=== PATIENT | male | born 1930 | race Caucasian/White ===

== ENCOUNTER 2016-12-04 08:44 | Inpatient (IN) | payer MEDICARE ==
[~2016-12-04] VITALS: Ht 170.2 cm; Wt 56.2 kg
[~2016-12-04 08:44] MED LIST: ALLOPURINOL; BENA40TA3 PO; COLC0.6T66 PO; FUROSEMIDE; NIFE60TA7 PO; SIMV40TA5 PO; SUCRALFATE
[2016-12-04] MEDS ORDERED: SODIUM CHLORIDE 0.9% 1,000 ML IV ONE ×2 (09:21→10:30)
[2016-12-04 09:29] LABS: BASOPHILS % 0.1 % (0.0-2.0); HEMATOCRIT. 35.2 % (42.0-52.0); HEMOGLOBIN. 11.8 g/dL (14.0-18.0); LYMPHOCYTES % 7.2 % (20.0-50.0); MEAN CORPUSCULAR VOLUME 83.6 fL (80.0-94.0); MEAN PLATELET VOLUME 8.9 fl (7.4-10.4); MONOCYTES % 4.6 % (2.0-8.0); NEUTROPHILS % 88.1 % (40.0-76.0); PLATELET 390 x1000/uL (130-400); RED BLOOD CELL COUNT 4.21 mill/uL (4.7-6.1); RED CELL DISTRIBUTION WIDTH 17.7 % (11.6-14.6)
[2016-12-04 09:37] LABS: INR 1.1; PROTHROMBIN TIME 11.3 sec
[2016-12-04] MEDS ORDERED: ALLO100T PO (10:03)
[2016-12-04] MEDS ORDERED: FURO40TA5 PO ×2 (10:04→16:14)
[2016-12-04 10:05] LABS: TROPONIN I 0.69 ng/mL (0.00-0.04)
[2016-12-04] MEDS ORDERED: ATOR20TA65 PO (10:08)
[2016-12-04] MEDS ORDERED: METO-300 PO (10:09)
[2016-12-04] MEDS ORDERED: METOLAZONE (10:12)
[2016-12-04] MEDS ORDERED: ASPIRIN 81MG TABLET PO ONE (10:15)
[2016-12-04] MEDS ORDERED: KCL 10MEQ/50ML PREMIX 50 ML IV ONE (10:15)
[2016-12-04] MEDS ORDERED: ELIQUIS PO (10:16)
[2016-12-04] MEDS ORDERED: OMEP40CA34 PO (10:16)
[2016-12-04] MEDS ORDERED: HYDRALAZINE HCL 100MG TABLET PO NR (12:45)
[2016-12-04 13:00] VITALS: BP 206/105
[2016-12-04] MEDS ORDERED: ONDANSETRON HCL 4MG/2ML VIAL IV PRN (13:30)
[2016-12-04] MEDS ORDERED: ACETAMINOPHEN 325MG TABLET PO PRN (13:30)
[2016-12-04] MEDS ORDERED: HYDROCODONE/ACETAMINOPHEN 5/325MG TABLET PO PRN (13:30)
[2016-12-04] MEDS ORDERED: CLONIDINE 0.1MG TABLET PO PRN (13:30)
[2016-12-04] MEDS ORDERED: DOCUSATE SODIUM 100MG CAPSULE PO PRN (13:30)
[2016-12-04] MEDS ORDERED: HYDRALAZINE HCL 100MG TABLET PO SCH (14:00)
[2016-12-04] MEDS ORDERED: METOPROLOL TARTRATE 25MG TABLET PO SCH (14:00)
[2016-12-04] MEDS: MEGESTROL ACETATE 400 MG/10 ML UDC PO SCH (14:36)
[2016-12-04] MEDS: ENOXAPARIN 30MG/0.3ML SYR SUBCUT SCH (14:36)
[2016-12-04] MEDS: POTASSIUM CHLORIDE 20MEQ TABLET SR PO SCH (14:36)
[2016-12-04] MEDS: AMLODIPINE 10MG TABLET PO SCH (14:37)
[2016-12-04] MEDS: MULTIVITAMINS,THER W-MINERALS TABLET PO SCH (14:37)
[2016-12-04 14:39] VITALS: BP 135/105
[2016-12-04] MEDS ORDERED: KCL 20MEQ/100ML PREMIX 100 ML IV NR (15:30)
[2016-12-04 16:12] VITALS: BP 114/55
[2016-12-04] MEDS ORDERED: METO2.5T14 PO (16:14)
[2016-12-04 17:05] LABS: CREATINE KINASE MB FRACTION 2.8 ng/mL (0.5-3.6)
[2016-12-04 17:15] LABS: TROPONIN I 0.75 ng/mL (0.00-0.04)
[2016-12-04] MEDS: DEXT 5%/0.45% NACL KCL 10MEQ/L 1,000 ML IV SCH (17:34)
[2016-12-04 20:00] VITALS: BP 146/82
[2016-12-04] MEDS: METOPROLOL TARTRATE 50MG TABLET PO SCH (20:43)
[2016-12-04] MEDS: HYDRALAZINE HCL 100MG TABLET PO SCH (21:02)
[2016-12-05] VITALS (7 sets, daily range): BP systolic 108–152; BP diastolic 62–83
[2016-12-05 01:20] LABS: CREATINE KINASE MB FRACTION 1.9 ng/mL (0.5-3.6)
[2016-12-05 01:45] LABS: TROPONIN I 0.73 ng/mL (0.00-0.04)
[2016-12-05] MEDS: HYDRALAZINE HCL 100MG TABLET PO SCH ×3 (05:25→22:47)
[2016-12-05 06:07] LABS: MEAN CORPUSCULAR HEMOGLOBIN 28.1 pg (28.0-32.0); MEAN PLATELET VOLUME 8.9 fl (7.4-10.4); PLATELET 310 x1000/uL (130-400); RED BLOOD CELL COUNT 3.57 mill/uL (4.7-6.1); RED CELL DISTRIBUTION WIDTH 17.6 % (11.6-14.6)
[2016-12-05 06:44] LABS: CHLORIDE 80 mEq/L (98-107)
[2016-12-05 07:24] LABS: CARBON DIOXIDE 34 mEq/L (21-32); HDL CHOLESTEROL 64 mg/dL (40-59); LDL CHOLESTEROL 101 mg/dL (5-100)
[2016-12-05] MEDS: AMLODIPINE 10MG TABLET PO SCH (08:22)
[2016-12-05] MEDS: POTASSIUM CHLORIDE 20MEQ TABLET SR PO SCH (08:22)
[2016-12-05] MEDS: MULTIVITAMINS,THER W-MINERALS TABLET PO SCH (08:23)
[2016-12-05] MEDS: MEGESTROL ACETATE 400 MG/10 ML UDC PO SCH (08:23)
[2016-12-05] MEDS: METOPROLOL TARTRATE 50MG TABLET PO SCH ×2 (08:23→21:06)
[2016-12-05 10:48] LABS: PLATELET ESTIMATE NORMAL
[2016-12-05] MEDS: KCL 20MEQ/100ML PREMIX 100 ML IV SCH ×2 (11:09→20:51)
[2016-12-05] MEDS: ENOXAPARIN 30MG/0.3ML SYR SUBCUT SCH (14:57)
[2016-12-05 18:18] LABS: BG BASE EXCESS 11.7 mmol/L (-2.0-2.0); BG CARBOXYHEMOGLOBIN 0.3 % (0.5-1.5); BG DEOXYHEMOGLOBIN 2.8 % (0.0-5.0); BG FRACTION INSPIRED OXYGEN 100; BG HCO3 ACT 34.8 mmol/L (22.0-26.0); BG METHEMOGLOBIN 0.2 % (0.0-1.5); BG OXYGEN SATURATION 97.2 % (92.0-98.5); BG OXYHEMOGLOBIN 96.7 % (94.0-97.0); BG PCO2 39.2 mmHg (35.0-45.0); BG PH 7.566 (7.350-7.450); BG PO2 90.2 mmHg (75.0-100.0); BG SAMPLE SITE RIGHT RADIAL; BG TOTAL HEMOGLOBIN 10.8 g/dL (12.0-18.0); BG VENT MODE MASK - NRB
[2016-12-05] MEDS: DEXT 5%/0.45% NACL KCL 10MEQ/L 1,000 ML IV SCH (20:51)
[2016-12-05] MEDS ORDERED: POTASSIUM CHLORIDE INJ 40 MEQ in DEXT 5% WATER 250 ML IV NR (21:00)
[2016-12-06] VITALS (12 sets, daily range): BP systolic 98–145; BP diastolic 56–80
[2016-12-06] MEDS ORDERED: POTASSIUM CHLORIDE INJ 40 MEQ in DEXT 5% WATER 250 ML IV NR (02:00)
[2016-12-06] MEDS: HYDRALAZINE HCL 100MG TABLET PO SCH ×3 (06:47→21:59)
[2016-12-06] MEDS: DEXT 5%/0.45% NACL KCL 10MEQ/L 1,000 ML IV SCH ×2 (07:30→22:01)
[2016-12-06 07:49] LABS: HEMATOCRIT. 27.7 % (42.0-52.0); HEMOGLOBIN. 9.2 g/dL (14.0-18.0); MEAN CORPUSCULAR HEMOGLOBIN 27.6 pg (28.0-32.0); MEAN CORPUSCULAR VOLUME 83.3 fL (80.0-94.0); MEAN PLATELET VOLUME 8.9 fl (7.4-10.4); PLATELET 279 x1000/uL (130-400); RED BLOOD CELL COUNT 3.33 mill/uL (4.7-6.1)
[2016-12-06 08:10] LABS: CARBON DIOXIDE 32 mEq/L (21-32); CHLORIDE 85 mEq/L (98-107)
[2016-12-06 08:26] LABS: PLATELET ESTIMATE NORMAL
[2016-12-06] MEDS: AMLODIPINE 10MG TABLET PO SCH (08:50)
[2016-12-06] MEDS: MULTIVITAMINS,THER W-MINERALS TABLET PO SCH (09:00)
[2016-12-06] MEDS: MEGESTROL ACETATE 400 MG/10 ML UDC PO SCH (09:00)
[2016-12-06] MEDS: POTASSIUM CHLORIDE 20MEQ TABLET SR PO SCH (09:01)
[2016-12-06] MEDS: METOPROLOL TARTRATE 50MG TABLET PO SCH ×2 (09:01→21:59)
[2016-12-06] MEDS ORDERED: PIPERACILLIN/TAZ 2.25G PREMIX 50 ML IV SCH (12:00)
[2016-12-06] MEDS: PIPERACILLIN/TAZ 3.375G PREMIX 50 ML IV SCH ×3 (13:22→23:47)
[2016-12-06] MEDS: ENOXAPARIN 30MG/0.3ML SYR SUBCUT SCH (13:22)
[2016-12-07] VITALS (15 sets, daily range): BP systolic 131–155; BP diastolic 58–82
[2016-12-07] MEDS: PIPERACILLIN/TAZ 3.375G PREMIX 50 ML IV SCH ×4 (05:45→23:50)
[2016-12-07] MEDS: HYDRALAZINE HCL 100MG TABLET PO SCH ×3 (05:48→22:01)
[2016-12-07] MEDS: METOPROLOL TARTRATE 50MG TABLET PO SCH ×2 (08:59→20:36)
[2016-12-07] MEDS: AMLODIPINE 10MG TABLET PO SCH (09:01)
[2016-12-07] MEDS: MULTIVITAMINS,THER W-MINERALS TABLET PO SCH (09:05)
[2016-12-07] MEDS: MEGESTROL ACETATE 400 MG/10 ML UDC PO SCH (09:05)
[2016-12-07] MEDS: POTASSIUM CHLORIDE 20MEQ TABLET SR PO SCH (09:05)
[2016-12-07] MEDS: DEXT 5%/0.45% NACL KCL 10MEQ/L 1,000 ML IV SCH ×2 (10:20→22:02)
[2016-12-07 11:53] LABS: HEMATOCRIT. 25.5 % (42.0-52.0); HEMOGLOBIN. 8.3 g/dL (14.0-18.0); MEAN CORPUSCULAR HEMOGLOBIN 27.5 pg (28.0-32.0); MEAN CORPUSCULAR VOLUME 84.6 fL (80.0-94.0); PLATELET 271 x1000/uL (130-400); RED BLOOD CELL COUNT 3.01 mill/uL (4.7-6.1); RED CELL DISTRIBUTION WIDTH 18.3 % (11.6-14.6)
[2016-12-07 12:00] LABS: CARBON DIOXIDE 34 mEq/L (21-32); CHLORIDE 86 mEq/L (98-107)
[2016-12-07] MEDS ORDERED: POTASSIUM CHLORIDE 20MEQ TABLET SR PO SCH (12:45)
[2016-12-07] MEDS ORDERED: POTASSIUM CHLORIDE 20MEQ TABLET SR PO ONE (13:00)
[2016-12-07 13:11] LABS: PLATELET ESTIMATE NORMAL
[2016-12-07] MEDS: ENOXAPARIN 30MG/0.3ML SYR SUBCUT SCH (14:42)
[2016-12-08] VITALS: BP 144/77
[2016-12-08 04:00] VITALS: BP 143/100
[2016-12-08] MEDS: PIPERACILLIN/TAZ 3.375G PREMIX 50 ML IV SCH ×4 (05:28→23:31)
[2016-12-08] MEDS: HYDRALAZINE HCL 100MG TABLET PO SCH ×3 (05:32→21:35)
[2016-12-08 06:29] LABS: HEMATOCRIT. 26.7 % (42.0-52.0); HEMOGLOBIN. 8.8 g/dL (14.0-18.0); MEAN CORPUSCULAR VOLUME 85.2 fL (80.0-94.0); MEAN PLATELET VOLUME 8.9 fl (7.4-10.4); PLATELET 270 x1000/uL (130-400); RED BLOOD CELL COUNT 3.13 mill/uL (4.7-6.1); RED CELL DISTRIBUTION WIDTH 18.3 % (11.6-14.6)
[2016-12-08 07:04] LABS: CARBON DIOXIDE 31 mEq/L (21-32); CHLORIDE 91 mEq/L (98-107)
[2016-12-08 08:00] VITALS: BP 153/74
[2016-12-08] MEDS: MEGESTROL ACETATE 400 MG/10 ML UDC PO SCH (08:08)
[2016-12-08] MEDS: MULTIVITAMINS,THER W-MINERALS TABLET PO SCH (08:09)
[2016-12-08] MEDS: POTASSIUM CHLORIDE 20MEQ TABLET SR PO SCH (08:09)
[2016-12-08] MEDS: AMLODIPINE 10MG TABLET PO SCH (08:09)
[2016-12-08] MEDS: METOPROLOL TARTRATE 50MG TABLET PO SCH ×2 (08:10→20:59)
[2016-12-08 12:00] VITALS: BP 136/74
[2016-12-08] MEDS: DEXT 5%/0.45% NACL KCL 10MEQ/L 1,000 ML IV SCH ×2 (12:50→15:03)
[2016-12-08] MEDS: ENOXAPARIN 30MG/0.3ML SYR SUBCUT SCH (13:53)
[2016-12-08] MEDS: DILTIAZEM HCL 60MG TABLET PO SCH ×2 (15:29→21:35)
[2016-12-08 16:00] VITALS: BP 113/67
[2016-12-08 18:59] LABS: CLARITY URINE CLEAR (CLEAR); COLOR URINE YELLOW (YELLOW); GLUCOSE URINE NEGATIVE (NEGATIVE); KETONES URINE NEGATIVE (NEGATIVE); LEUKOCYTE ESTERASE URINE NEGATIVE (NEGATIVE); NITRITE URINE NEGATIVE (NEGATIVE); OCCULT BLOOD URINE NEGATIVE (NEGATIVE); PROTEIN URINE 2+ (NEGATIVE); SPECIFIC GRAVITY URINE 1.016 (1.005-1.030); UROBILINOGEN URINE 0.2 E.U./dL (0.2-1.0)
[2016-12-08 20:00] VITALS: BP 125/61
[2016-12-08 20:22] LABS: PLATELET ESTIMATE NORMAL
[2016-12-08] MEDS: GUAIFENESIN 600MG ER TABLET PO SCH (20:59)
[2016-12-09] VITALS (17 sets, daily range): BP systolic 113–153; BP diastolic 61–85
[2016-12-09] MEDS: DILTIAZEM HCL 60MG TABLET PO SCH ×3 (06:05→21:45)
[2016-12-09] MEDS: HYDRALAZINE HCL 100MG TABLET PO SCH ×3 (06:05→21:44)
[2016-12-09] MEDS: PIPERACILLIN/TAZ 3.375G PREMIX 50 ML IV SCH ×4 (06:06→23:40)
[2016-12-09 07:03] LABS: HEMATOCRIT. 23.3 % (42.0-52.0); HEMOGLOBIN. 7.5 g/dL (14.0-18.0); MEAN CORPUSCULAR HEMOGLOBIN 27.1 pg (28.0-32.0); MEAN CORPUSCULAR VOLUME 84.9 fL (80.0-94.0); PLATELET 273 x1000/uL (130-400); RED BLOOD CELL COUNT 2.75 mill/uL (4.7-6.1); RED CELL DISTRIBUTION WIDTH 18.4 % (11.6-14.6)
[2016-12-09 07:58] LABS: CARBON DIOXIDE 29 mEq/L (21-32); CHLORIDE 94 mEq/L (98-107)
[2016-12-09] MEDS: GUAIFENESIN 600MG ER TABLET PO SCH ×2 (10:04→21:44)
[2016-12-09] MEDS: MEGESTROL ACETATE 400 MG/10 ML UDC PO SCH (10:04)
[2016-12-09] MEDS: POTASSIUM CHLORIDE 20MEQ TABLET SR PO SCH (10:04)
[2016-12-09] MEDS: MULTIVITAMINS,THER W-MINERALS TABLET PO SCH (10:05)
[2016-12-09] MEDS: AMLODIPINE 10MG TABLET PO SCH (10:06)
[2016-12-09] MEDS: METOPROLOL TARTRATE 50MG TABLET PO SCH ×2 (10:06→21:44)
[2016-12-09 10:41] LABS: PLATELET ESTIMATE NORMAL
[2016-12-09] MEDS ORDERED: ENOXAPARIN 40MG/0.4ML SYR SUBCUT SCH (14:00)
[2016-12-10] VITALS (12 sets, daily range): BP systolic 128–160; BP diastolic 63–91
[2016-12-10] MEDS: PIPERACILLIN/TAZ 3.375G PREMIX 50 ML IV SCH ×3 (06:18→18:18)
[2016-12-10] MEDS: DILTIAZEM HCL 60MG TABLET PO SCH (06:18)
[2016-12-10] MEDS: HYDRALAZINE HCL 100MG TABLET PO SCH ×2 (06:19→15:00)
[2016-12-10 06:49] LABS: HEMATOCRIT. 26.7 % (42.0-52.0); HEMOGLOBIN. 8.8 g/dL (14.0-18.0); MEAN CORPUSCULAR HEMOGLOBIN 28.4 pg (28.0-32.0); MEAN CORPUSCULAR VOLUME 85.9 fL (80.0-94.0); MEAN PLATELET VOLUME 8.9 fl (7.4-10.4); PLATELET 267 x1000/uL (130-400); RED BLOOD CELL COUNT 3.11 mill/uL (4.7-6.1); RED CELL DISTRIBUTION WIDTH 17.3 % (11.6-14.6)
[2016-12-10] MEDS: MEGESTROL ACETATE 400 MG/10 ML UDC PO SCH (09:45)
[2016-12-10] MEDS: POTASSIUM CHLORIDE 20MEQ TABLET SR PO SCH (09:45)
[2016-12-10] MEDS: METOPROLOL TARTRATE 50MG TABLET PO SCH ×2 (09:46→20:51)
[2016-12-10] MEDS: AMLODIPINE 10MG TABLET PO SCH (09:46)
[2016-12-10] MEDS: MULTIVITAMINS,THER W-MINERALS TABLET PO SCH (09:46)
[2016-12-10] MEDS: GUAIFENESIN 600MG ER TABLET PO SCH ×2 (09:46→20:51)
[2016-12-10 16:21] LABS: PLATELET ESTIMATE NORMAL
[2016-12-10] MEDS ORDERED: DILTIAZEM HCL 60MG TABLET PO SCH (18:00)
== END 2016-12-10 21:30 | disposition hospice, home (50) | DRG 177 ==
LOC: ER 09:02 → 5WST 11:25 → 5EST 12-05 18:24
PROVIDERS: ADMIT Internal Medicine; ATTEND Internal Medicine
PROC: 30233N1 Transfusion of Nonautologous Red Blood Cells into Peripheral Vein, Percutaneous Approach (ICD-10-PCS; principal; 2016-12-09)
DX: J69.0 Pneumonitis due to inhalation of food and vomit (principal); I21.4 Non-ST elevation (NSTEMI) myocardial infarction; C18.9 Malignant neoplasm of colon, unspecified; E87.1 Hypo-osmolality and hyponatremia; N17.9 Acute kidney failure, unspecified; E46 Unspecified protein-calorie malnutrition; Z68.1 Body mass index [BMI] 19.9 or less, adult; K92.1 Melena; D64.9 Anemia, unspecified; E78.5 Hyperlipidemia, unspecified; E86.0 Dehydration; E87.6 Hypokalemia; I11.0 Hypertensive heart disease with heart failure; I48.0 Paroxysmal atrial fibrillation; K21.9 Gastro-esophageal reflux disease without esophagitis; M10.9 Gout, unspecified; R13.10 Dysphagia, unspecified; R62.7 Adult failure to thrive; Z66 Do not resuscitate; W18.30XA Fall on same level, unspecified, initial encounter; I50.9 Heart failure, unspecified; Z82.49 Family history of ischemic heart disease and other diseases of the circulatory system; Z85.528 Personal history of other malignant neoplasm of kidney; Z87.891 Personal history of nicotine dependence; Z90.5 Acquired absence of kidney; Z93.3 Colostomy status; Y93.89 Activity, other specified; Y92.89 Other specified places as the place of occurrence of the external cause; Y99.8 Other external cause status; Z88.6 Allergy status to analgesic agent; Z79.899 Other long term (current) drug therapy; Z90.49 Acquired absence of other specified parts of digestive tract
CPT/HCPCS: 36415; 36600; 71010; 80048; 80053; 80061; 81001; 82270; 82375; 82550; 82553; 82805; 83735; 83880; 84132; 84484; 85025; 85610; 86850; 86900; 86920; 92610; 93005; 93306; 93970; 94660; 96361; 96365; 97161; 97167; 99291; J1650; J2543; J3480; J7030; J7050; J7060; P9016